=== PATIENT | female | born 1980 | race Hispanic/Latino ===

== ENCOUNTER 2022-02-10 10:02 | Inpatient (IN) | payer OTHER ==
[~2022-02-10] VITALS: Ht 172.7 cm; Wt 58.5 kg
[2022-02-10] MEDS ORDERED: ALBUTEROL/IPRATROPIUM 3 ML NEB ONE (10:25)
[2022-02-10] MEDS ORDERED: SODIUM CHLORIDE 0.9% 1000ML 1,000 ML IV SCH (10:30)
[2022-02-10] MEDS ORDERED: METHYLPREDNISOLONE SOD SUCC 125 MG/2ML VIAL IV ONE (10:30)
[2022-02-10] MEDS ORDERED: ALBUTEROL/IPRATROPIUM 3 ML NEB NEB ONE ×2 (10:30)
[2022-02-10] MEDS ORDERED: METHYLPREDNISOLONE SOD SUCC 125 MG/2ML VIAL ONE (10:31)
[2022-02-10] MEDS ORDERED: SODIUM CHLORIDE 0.9% 1000ML 1,000 ML ONE (10:32)
[2022-02-10] MEDS ORDERED: ACETAMINOPHEN/CODEINE 300MG - 30MG TAB PO ONE (11:30)
[2022-02-10] MEDS ORDERED: ACETAMINOPHEN/CODEINE ELIX 120-12 MG/5 ML UDC ONE (11:41)
[2022-02-10] MEDS ORDERED: ACETAMINOPHEN/CODEINE ELIX 120-12 MG/5 ML UDC NG ONE (11:45)
[2022-02-10] MEDS ORDERED: ONDANSETRON HCL INJ 2MG/ML 2ML 2 MG/ML VIAL IV PRN (13:30)
[2022-02-10] MEDS ORDERED: GUAIFENESIN/CODEINE 5 ML LIQD PO PRN (13:30)
[2022-02-10] MEDS ORDERED: ALBUTEROL SULF 0.083% NEB SOLN 3 ML NEB NEB SCH (15:00)
[2022-02-10 17:30] VITALS: BP 115/62
[2022-02-10 17:35] VITALS: BP 115/62
[2022-02-10] MEDS: SODIUM CHLORIDE 0.9% 1000ML 1,000 ML IV SCH (17:40)
[2022-02-10] MEDS ORDERED: ACETAMINOPHEN 325 MG TAB PO PRN (19:15)
[2022-02-10 20:00] VITALS: BP 132/62
[2022-02-10] MEDS: ALBUTEROL SULFATE HFA 8GM INHALATION AEROSOL INH SCH (23:00)
[2022-02-11] VITALS (8 sets, daily range): BP systolic 103–175; BP diastolic 57–77
[2022-02-11] MEDS: SODIUM CHLORIDE 0.9% 1000ML 1,000 ML IV SCH (00:07)
[2022-02-11] MEDS: METOPROLOL TARTRATE 25 MG TAB PO SCH ×4 (00:07→21:56)
[2022-02-11] MEDS: ALBUTEROL SULFATE HFA 8GM INHALATION AEROSOL INH SCH ×6 (03:00→23:00)
[2022-02-11 10:24] LABS: BASOPHILS % 0.2 % (0.0-1.0); EOSINOPHILS % 0.1 % (0.0-6.0); HEMATOCRIT 26.7 % (34.2-44.1); HEMOGLOBIN 7.2 g/dL (12.0-16.0); LYMPHOCYTES # (AUTO) 1.6 (1.0-3.2); MEAN CORPUSCULAR HEMOGLOBIN 19.9 pg (28-32); MEAN CORPUSCULAR VOLUME 73.8 fL (81-99); MONOCYTES # (AUTO) 1.1 (0.2-0.8); MONOCYTES % 10.5 % (4.4-11.3); NEUTROPHILS # (AUTO) 7.4 (2.1-6.9); NEUTROPHILS % 72.5 % (38.7-80.0); PLATELET COUNT 298 x10e3/uL (140-360); RED BLOOD COUNT 3.62 x10e6/uL (3.6-5.1); RED CELL DISTRIBUTION WIDTH 16.9 % (11.7-14.4)
[2022-02-11 10:47] LABS: ANION GAP 6.4 mmol/L (8-16); CALCIUM 7.9 mg/dL (8.4-10.2); CREATININE, SERUM 0.63 mg/dL (0.57-1.11); POTASSIUM 3.4 mmol/L (3.5-5.1)
[2022-02-11] MEDS ORDERED: LEVALBUTEROL HCL SOLN NEBU 1.25 MG/3 ML NEB INH PRN (12:15)
[2022-02-11] MEDS ORDERED: ZOLPIDEM TARTRATE 5 MG TAB PO PRN (12:15)
[2022-02-11] MEDS: METHYLPREDNISOLONE SOD SUCC 125 MG/2ML VIAL IV SCH (12:47)
[2022-02-11] MEDS: NIRMATRELVIR/RITONAVIR 1 EACH TABLET PO SCH ×2 (12:47→20:45)
[2022-02-11] MEDS: BENZONATATE 100 MG CAP PO SCH ×2 (14:52→20:45)
[2022-02-11] MEDS ORDERED: ENOXAPARIN SOD INJ 40 MG/0.4 ML SYR SC SCH (17:00)
[2022-02-11] MEDS: FAMOTIDINE 20 MG TAB PO SCH (17:05)
[2022-02-11] MEDS: BUDESONIDE/FORMOTEROL 160/4.5MCG INHALER INH SCH (19:45)
[2022-02-12] VITALS: BP 145/65
[2022-02-12] MEDS: ALBUTEROL SULFATE HFA 8GM INHALATION AEROSOL INH SCH ×2 (02:08→07:33)
[2022-02-12 04:00] VITALS: BP 115/70
[2022-02-12] MEDS: METOPROLOL TARTRATE 25 MG TAB PO SCH (06:00)
[2022-02-12] MEDS: FAMOTIDINE 20 MG TAB PO SCH (07:30)
[2022-02-12] MEDS: BUDESONIDE/FORMOTEROL 160/4.5MCG INHALER INH SCH (07:33)
[2022-02-12] MEDS ORDERED: SODIUM CHLORIDE 0.9% 250ML 250 ML ONE ×2 (07:34→07:35)
[2022-02-12 08:14] VITALS: BP 121/72
[2022-02-12] MEDS: BENZONATATE 100 MG CAP PO SCH (09:00)
[2022-02-12] MEDS: METHYLPREDNISOLONE SOD SUCC 125 MG/2ML VIAL IV SCH (09:00)
[2022-02-12] MEDS: NIRMATRELVIR/RITONAVIR 1 EACH TABLET PO SCH (09:00)
[2022-02-12] MEDS ORDERED: ZITHROMAX500 MG PO (10:29)
[2022-02-12] MEDS ORDERED: MUCINEX DM ER1 EACH PO (10:29)
[2022-02-12] MEDS ORDERED: PREDNISONE20 MG PO (10:29)
[2022-02-12] MEDS ORDERED: LOPRESSOR25 MG PO (10:29)
[2022-02-12] MEDS ORDERED: FAMOTIDINE20 MG PO (10:29)
[2022-02-12] MEDS ORDERED: Benzonatate PO (10:29)
[2022-02-12 12:03] VITALS: BP 114/65
[2022-02-12] MEDS ORDERED: ONDANSETRON HCL 4 MG ORAL DISINTEGRATING TAB PO PRN (12:15)
[2022-02-13] MEDS ORDERED: AZITHROMYCIN 250 MG TAB PO SCH (09:00)
== END 2022-02-12 12:12 | disposition home or self-care (01) | DRG 177 ==
LOC: FSED 10:24 → ERHOLD 13:35 → MED/SURG3 16:43 → OBSVTOIN 02-12 10:06
PROVIDERS: ADMIT Internal Medicine; ATTEND Internal Medicine
PROC: 8E0ZXY6 Isolation (ICD-10-PCS; principal; 2022-02-12)
DX: U07.1 COVID-19 (principal); J12.82 Pneumonia due to coronavirus disease 2019; J96.01 Acute respiratory failure with hypoxia; J45.902 Unspecified asthma with status asthmaticus; J45.901 Unspecified asthma with (acute) exacerbation; D64.9 Anemia, unspecified; D50.0 Iron deficiency anemia secondary to blood loss (chronic); Z88.1 Allergy status to other antibiotic agents; Z79.51 Long term (current) use of inhaled steroids
CPT/HCPCS: 36415; 71045; 71046; 80048; 80053; 81003; 81025; 82553; 83880; 84132; 84484; 85025; 85379; 87040; 94664; 94799; 96361; 99284; G0378; J0456; J1650; J2930; J7030; J7050; U0002

== ENCOUNTER 2024-05-30 14:54 | Emergency (ER) | payer OTHER ==
[~2024-05-30] VITALS: Ht 152.4 cm; Wt 79.4 kg
[~2024-05-30 14:54] MED LIST: Benzonatate PO; FAMOTIDINE20 MG PO; LOPRESSOR25 MG PO; MUCINEX DM ER1 EACH PO; PREDNISONE20 MG PO; ZITHROMAX500 MG PO
[2024-05-30 16:13] VITALS: PULSE 79; RESP 18
[2024-05-30] MEDS: ALBUTEROL/IPRATROPIUM 3 ML NEB NEB ONE (16:13)
[2024-05-30] MEDS: METHYLPREDNISOLONE SOD SUCC 125 MG/2ML VIAL IV ONE (16:13)
[2024-05-30] MEDS: SODIUM CHLORIDE 0.9% 1000ML 1,000 ML IV STA (16:14)
[2024-05-30] MEDS: KETOROLAC TROMETHAMINE 30 MG/ML VIAL IV STA (16:15)
[2024-05-30 17:37] VITALS: PULSE 84; RESP 18; TEMP 98; O2SAT 96
[2024-05-30] MEDS ORDERED: AZITHROMYCIN250 MG PO (18:38)
[2024-05-30] MEDS ORDERED: VENTOLIN HFA18 GM INH (18:40)
[2024-05-30] MEDS ORDERED: CODEINE-GUAIFE120 ML PO (18:44)
[2024-05-30] MEDS ORDERED: PREDNISONE20 MG PO (18:50)
== END 2024-05-30 19:05 | disposition home or self-care (01) ==
LOC: FSED 14:58
DX: R05.9 Cough, unspecified (principal); J45.901 Unspecified asthma with (acute) exacerbation; J20.9 Acute bronchitis, unspecified; B34.9 Viral infection, unspecified; E86.0 Dehydration; D64.9 Anemia, unspecified
CPT/HCPCS: 0223U; 71046; 80053; 83518; 85025; 87400; 99284; J1885; J2919; J7030